=== PATIENT | male | born 1950 | race Caucasian/White ===

== ENCOUNTER 2017-05-13 03:38 | Inpatient (IN) | payer MEDICARE, OTHER ==
[~2017-05-13] VITALS: Ht 182.9 cm; Wt 113.6 kg
[2017-05-13] MEDS ORDERED: HYDROmorphone 1 MG/ML, 1ML ONE ×3 (03:52→09:45)
[2017-05-13] MEDS ORDERED: ONDANSETRON 2MG/ML, 2ML ONE (03:53)
[2017-05-13] MEDS ORDERED: ONDANSETRON 2MG/ML, 2ML IVPush ONE (04:00)
[2017-05-13] MEDS ORDERED: PROMETHAZINE 25 MG/ML, 1ML IM ONE (04:00)
[2017-05-13] MEDS ORDERED: SODIUM CHLORIDE 0.9% 1,000ML IVBOLUS ONE (04:00)
[2017-05-13] MEDS ORDERED: SODIUM CHLORIDE FLUSH 10ML SYR IVF ONE (04:00)
[2017-05-13] MEDS ORDERED: SODIUM CHLORIDE 0.9% 1,000 ML IV ONE ×2 (04:00→06:31)
[2017-05-13] MEDS: HYDROmorphone 1 MG/ML, 1ML IVPush PRN ×2 (04:06→08:18)
[2017-05-13] MEDS ORDERED: ASPI-496 PO (04:11)
[2017-05-13] MEDS ORDERED: EDARBI PO (04:11)
[2017-05-13] MEDS ORDERED: CARV6.2512 PO (04:11)
[2017-05-13] MEDS ORDERED: MULTIVITAMIN (04:11)
[2017-05-13] MEDS ORDERED: B12 PO (04:11)
[2017-05-13] MEDS ORDERED: COQ10 PO (04:11)
[2017-05-13 04:19] LABS: HEMATOCRIT 40.2 % (39.2-51.8); HEMOGLOBIN 13.6 g/dL (13.7-18.0); WHITE BLOOD COUNT 14.4 x10^3/uL (3.4-10)
[2017-05-13 04:32] LABS: ASPARTATE AMINO TRANSFERASE 18 U/L (15-37); BLOOD UREA NITROGEN 19 mg/dL (7-18)
[2017-05-13] MEDS ORDERED: OMNIPAQUE 350 MG/ML, 100ML BOTTLE ONE (05:11)
[2017-05-13] MEDS ORDERED: SODIUM CHLORIDE FLUSH 10ML SYR IVF PRN (07:00)
[2017-05-13] MEDS ORDERED: PROMETHAZINE 25 MG/ML, 1ML ONE (08:25)
[2017-05-13 09:54] VITALS: BP 138/78
[2017-05-13] MEDS: LACTATED RINGERS 1,000 ML IV SCH ×2 (10:39→20:03)
[2017-05-13] MEDS: BISACODYL 10 MG SUPP PR SCH ×2 (11:22→20:04)
[2017-05-13] MEDS ORDERED: [UNRECOGNIZED DRUG - REMARK] MC SCH (11:30)
[2017-05-13] MEDS: morphine SULFATE 10 MG/ML, 1ML IV PRN ×2 (12:15→13:21)
[2017-05-13 14:30] VITALS: BP 137/77
[2017-05-13] MEDS: HYDROmorphone 1 MG/ML, 1ML IV PRN ×2 (14:45→18:01)
[2017-05-13 19:24] VITALS: BP 131/76
[2017-05-13] MEDS: CARVEDILOL 6.25 MG TABLET PO SCH (20:03)
[2017-05-13] MEDS: MAGNESIUM HYDROXIDE 8%, 30ML UDC PO SCH (20:03)
[2017-05-13] MEDS ORDERED: COQ10 100 MG PO SCH (21:00)
[2017-05-14 00:59] VITALS: BP 145/82
[2017-05-14] MEDS: HYDROmorphone 1 MG/ML, 1ML IV PRN ×7 (01:14→22:42)
[2017-05-14] MEDS: LACTATED RINGERS 1,000 ML IV SCH ×3 (03:51→21:34)
[2017-05-14 07:30] VITALS: BP 130/77
[2017-05-14] MEDS: CARVEDILOL 6.25 MG TABLET PO SCH ×2 (08:00→21:34)
[2017-05-14] MEDS: ASPIRIN 81 MG TABLET EC PO SCH (08:00)
[2017-05-14] MEDS: EDARBI 80 MG HOMEMEDPO SCH (08:00)
[2017-05-14] MEDS: BISACODYL 10 MG SUPP PR SCH ×2 (08:01→21:34)
[2017-05-14] MEDS: CYANOCOBALAMIN 1,000 MCG TABLET PO SCH (08:01)
[2017-05-14] MEDS: MAGNESIUM HYDROXIDE 8%, 30ML UDC PO SCH ×2 (08:55→21:34)
[2017-05-14] MEDS ORDERED: CARVEDILOL 6.25 MG TABLET PO SCH (09:00)
[2017-05-14] MEDS: LACTULOSE 20 GM/30 ML UDC PO SCH ×3 (11:19→21:34)
[2017-05-14 13:40] VITALS: BP 123/75
[2017-05-14] MEDS: ONDANSETRON 2MG/ML, 2ML IV PRN (18:08)
[2017-05-14 19:30] VITALS: BP 123/74
[2017-05-15 01:09] VITALS: BP 127/77
[2017-05-15] MEDS: ONDANSETRON 2MG/ML, 2ML IV PRN ×3 (01:38→21:52)
[2017-05-15] MEDS: HYDROmorphone 1 MG/ML, 1ML IV PRN ×5 (01:38→19:02)
[2017-05-15 03:27] LABS: BLOOD UREA NITROGEN 34 mg/dL (7-18)
[2017-05-15 03:31] LABS: HEMATOCRIT 35.3 % (39.2-51.8); HEMOGLOBIN 12.1 g/dL (13.7-18.0); WHITE BLOOD COUNT 7.2 x10^3/uL (3.4-10)
[2017-05-15] MEDS: LACTULOSE 20 GM/30 ML UDC PO SCH ×4 (05:21→22:30)
[2017-05-15] MEDS: LACTATED RINGERS 1,000 ML IV SCH ×2 (05:21→17:29)
[2017-05-15 07:45] VITALS: BP 171/82
[2017-05-15] MEDS: EDARBI 80 MG HOMEMEDPO SCH (09:00)
[2017-05-15] MEDS: ASPIRIN 81 MG TABLET EC PO SCH (09:31)
[2017-05-15] MEDS: CARVEDILOL 6.25 MG TABLET PO SCH ×2 (09:31→22:14)
[2017-05-15] MEDS: MAGNESIUM HYDROXIDE 8%, 30ML UDC PO SCH ×2 (09:31→22:16)
[2017-05-15] MEDS: CYANOCOBALAMIN 1,000 MCG TABLET PO SCH (09:31)
[2017-05-15] MEDS: BISACODYL 10 MG SUPP PR SCH ×2 (09:31→22:16)
[2017-05-15] MEDS ORDERED: LACTATED RINGERS 1,000 ML IVBOLUS ONE (10:30)
[2017-05-15] MEDS ORDERED: LACTATED RINGERS 1,000 ML IV SCH (11:30)
[2017-05-15 13:40] VITALS: BP 154/83
[2017-05-15 20:50] VITALS: BP_SYST 146; BP_DIAS 104; BP_DIAS 85
[2017-05-16] MEDS: LACTATED RINGERS 1,000 ML IV SCH ×3 (00:57→15:18)
[2017-05-16] MEDS: LACTULOSE 20 GM/30 ML UDC PO SCH ×5 (01:55→20:41)
[2017-05-16 02:03] VITALS: BP 153/82
[2017-05-16 05:20] LABS: BLOOD UREA NITROGEN 33 mg/dL (7-18)
[2017-05-16 07:50] VITALS: BP 141/82
[2017-05-16] MEDS: EDARBI 80 MG HOMEMEDPO SCH (08:39)
[2017-05-16] MEDS: BISACODYL 10 MG SUPP PR SCH ×2 (08:44→20:38)
[2017-05-16] MEDS: ASPIRIN 81 MG TABLET EC PO SCH (09:00)
[2017-05-16] MEDS: CYANOCOBALAMIN 1,000 MCG TABLET PO SCH (09:00)
[2017-05-16] MEDS: CARVEDILOL 6.25 MG TABLET PO SCH ×2 (09:00→20:37)
[2017-05-16] MEDS: MAGNESIUM HYDROXIDE 8%, 30ML UDC PO SCH ×2 (09:00→20:38)
[2017-05-16] MEDS ORDERED: hydrALAzine 20 MG/ML, 1ML IV PRN (10:30)
[2017-05-16] MEDS ORDERED: SODIUM CHLORIDE 0.9% 1,000 ML IV ONE (11:00)
[2017-05-16] MEDS: HEPARIN 5,000 UNITS/ML, 1ML SQ SCH ×2 (11:59→20:36)
[2017-05-16 15:00] VITALS: BP 159/77
[2017-05-16] MEDS: METOPROLOL 1 MG/ML, 5ML IVPush SCH ×2 (15:18→20:37)
[2017-05-16 18:04] LABS: HEMATOCRIT 35.4 % (39.2-51.8); HEMOGLOBIN 11.9 g/dL (13.7-18.0); WHITE BLOOD COUNT 4.9 x10^3/uL (3.4-10)
[2017-05-16 18:11] LABS: BLOOD UREA NITROGEN 31 mg/dL (7-18)
[2017-05-16 19:56] VITALS: BP 158/75
[2017-05-17] MEDS: LACTATED RINGERS 1,000 ML IV SCH ×4 (01:10→23:30)
[2017-05-17 01:53] VITALS: BP 158/91
[2017-05-17] MEDS: METOPROLOL 1 MG/ML, 5ML IVPush SCH ×2 (03:00→09:00)
[2017-05-17] MEDS: LACTULOSE 20 GM/30 ML UDC PO SCH ×4 (04:35→20:53)
[2017-05-17] MEDS: HEPARIN 5,000 UNITS/ML, 1ML SQ SCH ×3 (04:35→20:53)
[2017-05-17 07:11] VITALS: BP 165/72
[2017-05-17] MEDS: EDARBI 80 MG HOMEMEDPO SCH (09:00)
[2017-05-17] MEDS: MAGNESIUM HYDROXIDE 8%, 30ML UDC PO SCH ×2 (09:00→20:53)
[2017-05-17] MEDS: BISACODYL 10 MG SUPP PR SCH ×2 (09:00→20:53)
[2017-05-17] MEDS: CARVEDILOL 6.25 MG TABLET PO SCH ×2 (10:35→20:53)
[2017-05-17] MEDS: CYANOCOBALAMIN 1,000 MCG TABLET PO SCH (10:35)
[2017-05-17] MEDS: ASPIRIN 81 MG TABLET EC PO SCH (10:36)
[2017-05-17 12:50] VITALS: BP 154/79
[2017-05-17 19:47] VITALS: BP 169/85
[2017-05-18 03:10] VITALS: BP 136/71
[2017-05-18] MEDS: LACTULOSE 20 GM/30 ML UDC PO SCH ×2 (04:15→11:07)
[2017-05-18] MEDS: HEPARIN 5,000 UNITS/ML, 1ML SQ SCH ×2 (04:15→11:55)
[2017-05-18] MEDS: LACTATED RINGERS 1,000 ML IV SCH ×2 (04:16→11:56)
[2017-05-18 05:37] LABS: BLOOD UREA NITROGEN 21 mg/dL (7-18)
[2017-05-18 07:25] VITALS: BP 147/78
[2017-05-18] MEDS: EDARBI 80 MG HOMEMEDPO SCH (07:40)
[2017-05-18] MEDS: MAGNESIUM HYDROXIDE 8%, 30ML UDC PO SCH (07:46)
[2017-05-18] MEDS: BISACODYL 10 MG SUPP PR SCH (07:46)
[2017-05-18] MEDS: CYANOCOBALAMIN 1,000 MCG TABLET PO SCH (07:46)
[2017-05-18] MEDS: ASPIRIN 81 MG TABLET EC PO SCH (07:46)
[2017-05-18] MEDS: CARVEDILOL 6.25 MG TABLET PO SCH (07:47)
[2017-05-18 14:41] VITALS: BP 168/94
== END 2017-05-18 15:07 | disposition home or self-care (01) | DRG 388 ==
LOC: ED 04:07 → EDIP 06:31 → 4NOR 09:42
PROVIDERS: ADMIT Surgery; ATTEND Surgery
DX: K56.0 Paralytic ileus (principal); J18.9 Pneumonia, unspecified organism; N17.9 Acute kidney failure, unspecified; F17.200 Nicotine dependence, unspecified, uncomplicated; I10 Essential (primary) hypertension; I25.10 Atherosclerotic heart disease of native coronary artery without angina pectoris; I70.0 Atherosclerosis of aorta; I70.8 Atherosclerosis of other arteries; Z95.5 Presence of coronary angioplasty implant and graft; Z90.49 Acquired absence of other specified parts of digestive tract
CPT/HCPCS: 36415; 74000; 74177; 74250; 80048; 80053; 81001; 83690; 85025; 96361; 96374; 96375; 96376; J1170; J1644; J2405; J2550; Q9967; J2270; J7030; J7120